=== PATIENT | male | born 1975 | race Caucasian/White ===

== ENCOUNTER 2017-09-10 17:36 | Emergency (ER) | payer BC, OTHER ==
[2017-09-10] MEDS ORDERED: ONDANSETRON DISINTEGRATING 4 MG TAB PO ONE (18:36)
[2017-09-10] MEDS ORDERED: NS 1,000 ML IV ONE ×2 (19:01→19:32)
[2017-09-10 19:07] LABS: PLATELET COUNT 185 10^3/uL (150-400)
[2017-09-10] MEDS ORDERED: ONDANSETRON 4 MG/2 ML VIAL IVP ONE (19:14)
[2017-09-10] MEDS ORDERED: FAMOTIDINE 20 MG/2 ML SDV IVP ONE (19:32)
[2017-09-10] MEDS ORDERED: DICYCLOMINE 10 MG CAP PO ONE (19:32)
--- NOTE | 2017-09-10 19:32 | EDPHY ---
General Time Seen by Provider: 09/10/17 19:04 Narrative: CHIEF COMPLAINT: Vomiting and diarrhea HISTORY OF PRESENT ILLNESS: Patient presents with 3 days complaints of diarrhea. It started as 1st as vomiting. He had 3 episodes that day and has only vomited once since then. Shortly after vomiting started he commence with diarrhea. This is described as profuse and sometimes watery. No blood in the emesis or stool. No fever. Abdominal cramping. No chest pain or shortness of breath. No neck pain or stiffness. No headache. He did travel to [place] for 10 days preceding the symptoms. No recent antibiotic use. No recent admission to a [facility]. No improvement [id number] medications. No other associated complaints or modifying factors. 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 Occasional alcohol use. No drug use. Works as a director commercial sales. Moved here from [place] 4 weeks ago FAMILY HISTORY: Noncontributory EXAMINATION General Appearance: Alert, no distress Head: normocephalic, atraumatic Eyes: Pupils equal and round, no conjunctival pallor or injection ENT, Mouth: Mucous membranes dry. Airway widely patent. Neck: Normal inspection, supple, non-tender. No meningeal signs. Respiratory: Lungs are clear to auscultation no wheezing rhonchi or crackles Cardiovascular: Regular rate and rhythm. No murmur Gastrointestinal: Abdomen is soft and nondistended. No tympany rigidity. Bowel sounds are hyperactive in all 4 quadrants. No guarding. Back: non-tender, no bony abnormalities Neurological: A&O, nonfocal, normal gait Skin: Warm and dry, no rash no petechiae or purpura Extremities: Nontender, no pedal edema Psychiatric: Mood and affect normal DIFFERENTIAL DIAGNOSES: Including but not limited to gastroenteritis, gastritis, colitis, diverticulitis , traveler's diarrhea, infectious diarrhea MDM: 7:20 p.m. Diarrhea of 3 days duration with 1 day of vomiting that has decreased. He reports abdominal cramping but no abdominal pain at this time. Abdominal exam is benign. Vital signs are within normal limits. Laboratory studies are pending. I have ordered IV fluid, IV Pepcid, p.o. Bentyl. I do not feel he warrants any imaging at this time. He is in no acute distress. 7:50 p.m. CBC, chemistry and lipase are all within normal limits. The gastro pathogen panel is pending at this time. 8:05 p.m. Patient re-evaluated. He has improved. He has received nearly 2 years IV fluid. He is not vomiting. Stool sample has been provided but has not yet returned. His vital signs within normal limits. Abdominal exam remains benign. We discussed discharge home with symptomatic antiemetic medications, increase fluid intake, short course of pain medication, prescription for Bentyl and instructions to take Mylanta [id number]. We discussed ED precautions for any intolerance of intake by mouth, negative fluid balance, fever, intractable pain or cramping. He is comfortable this plan and discharged home stable condition. Addendum 11:15 p.m., September 11, 2017 Patient's gastro pathogen panel returned positive for rotavirus. I have contacted and notified the patient of this finding and the typically self- limiting nature. We discussed hydration and further ED precautions. He informed me that he is feeling significantly better at this time. SUPERVISION: This patient was independently evaluated without direct involvement of or examination by the attending physician. - History Smoking Status: Never smoked - Objective Vital Signs: Initial Vital Signs Temperature (C) 97.2 F 09/10/17 17:45 Heart Rate 50 L 09/10/17 17:45 Respiratory Rate 16 09/10/17 17:45 Blood Pressure 131/74 H 09/10/17 17:45 O2 Sat (%) 98 09/10/17 17:45 O2 Delivery Mode Room Air Allergies/Adverse Reactions: morphine [Morphine] Allergy (Verified 12/27/09 13:28) NAUSEA Home Medications: Medication Instructions Recorded [facility] Thyroid 09/10/17 Dicyclomine [Bentyl 20 MG (*)] 20 mg PO TID PRN #12 tab 09/10/17 Promethazine HCl [Phenergan 25mg 25 mg PO Q8 PRN #12 tab 09/10/17 (*)] Thyrogen 09/10/17 Laboratory Results: Laboratory Results 09/10/17 18:35 09/10/17 18:35 Microbiology Results: MICROBIOLOGY 09/10/17 19:32 Stool Gastrointestinal Tract Panel (PCR) - Final Rotavirus A Medications Given: Discontinued Medications Dicyclomine HCl (Bentyl) 20 mg PO EDNOW ONE Stop: 09/10/17 19:33 Last Admin: 09/10/17 19:41 Dose: 20 mg Famotidine (Pepcid) 20 mg IVP EDNOW ONE Stop: 09/10/17 19:33 Last Admin: 09/10/17 19:41 Dose: 20 mg Sodium Chloride (Ns) 1,000 mls @ 0 mls/hr IV ONCE ONE; Wide Open PRN Reason: Protocol Stop: 09/10/17 19:02 Last Admin: 09/10/17 19:16 Dose: 1,000 mls Sodium Chloride (Ns) 1,000 mls @ 0 mls/hr IV EDNOW ONE; Wide Open PRN Reason: Protocol Stop: 09/10/17 19:33 Last Admin: 09/10/17 19:47 Dose: 1,000 mls Ondansetron HCl (Zofran Odt) 4 mg PO EDNOW ONE Stop: 09/10/17 18:37 Last Admin: 09/10/17 19:15 Dose: Not Given Ondansetron HCl (Zofran) 4 mg IVP EDNOW ONE Stop: 09/10/17 19:15 Last Admin: 09/10/17 19:16 Dose: 4 mg Oxycodone/Acetaminophen (Percocet 5/325mg Prepack#4) 1 btl TAKEHOME EDNOW ONE Stop: 09/10/17 20:19 Last Admin: 09/10/17 20:32 Dose: 1 btl Promethazine HCl (Phenergan 25 Mg Prepack #4) 1 btl TAKEHOME EDNOW ONE Stop: 09/10/17 20:19 Last Admin: 09/10/17 20:33 Dose: 1 btl Departure - Departure Disposition: Home, Routine, Self-Care Clinical Impression: Gastroenteritis Condition: Good Instructions: Oxycodone/Acetaminophen (By mouth), Promethazine (By mouth), Gastroenteritis (ED), Acute Nausea and Vomiting (ED) Additional Instructions: 1. Increase fluid intake 2. Bentyl as prescribed as needed for abdominal cramping 3. Percocet as provided as needed, 1 pill every 4-6 hours for pain 4. Pepcid 20 mg [id number]-[id number] by mouth twice daily for the next 3-5 days 5. Mylanta [id number] as instructed as needed 6. Promethazine as provided as needed, 1 pill every 6-8 hours for nausea 7. We will contact you when your GI pathogen panel returns from the stool sample be provided. 8. ED precautions as discussed Referrals: LESVIA PHILIPPE [Primary Care Provider] - As per Instructions Prescriptions: Dicyclomine [Bentyl 20 MG (*)] 20 mg PO TID PRN #12 tab PRN Reason: abdominal cramps Promethazine HCl [Phenergan 25mg (*)] 25 mg PO Q8 PRN #12 tab PRN Reason: Nausea/Vomiting, Use 1st
[2017-09-10 19:48] VITALS: BP 125/74
[2017-09-10] MEDS ORDERED: OXYCODONE/APAP 5/325MG PREPACK#4 BTL TAKEHOME ONE (20:18)
[2017-09-10] MEDS ORDERED: PROMETHAZINE 25 MG PREPACK #4 BTL TAKEHOME ONE (20:18)
== END 2017-09-10 20:34 | disposition home or self-care (01) ==
DX: K52.9 Noninfective gastroenteritis and colitis, unspecified (principal); E86.9 Volume depletion, unspecified
CPT/HCPCS: 96374; J2405